=== PATIENT | male | born 1955 | race Caucasian/White ===

== ENCOUNTER → 2024-09-18 12:19 | Outpatient (CLI) | payer MEDICARE, OTHER, SELFPAY ==
--- NOTE | 2024-09-18 12:23 | DI.RAD.S_ITS ---
PROCEDURE: XR SHOULDER RT MIN 2V INDICATIONS: RIGHT SHOULDER PAIN TECHNIQUE: 3 views of the shoulder were acquired. COMPARISON: Outside Facility, RG, XR SHOULDER 2V RIGHT, 07/23/2022, 14:05. FINDINGS: Bones: Moderate to severe acromioclavicular and [id number] glenohumeral degenerative changes. No displaced fracture or dislocation. Soft tissues: Subtle suspected calcific tendinopathy IMPRESSION: Background degenerative changes especially at the acromioclavicular joint. Suspect subtle calcific tendinopathy. If there is high concern for further derangement, consider MRI evaluation. Dictated by: Surjit Sullivan M.D. on 09/18/2024 at 12:56 Approved by: Surjit Sullivan M.D. on 09/18/2024 at 12:57
== END ==
PROVIDERS: Family Provider Family Medicine; PCP Family Medicine; Referring Provider Physical Medicine & Rehabilitation; Visit Provider Physical Medicine & Rehabilitation
DX: M75.51 Bursitis of right shoulder (principal); M19.019 Primary osteoarthritis, unspecified shoulder
CPT/HCPCS: 73030